=== PATIENT | male | born 1950 | race Caucasian/White ===

== ENCOUNTER → 2017-05-30 16:21 | Outpatient (POV) | payer MEDICARE, OTHER, SELFPAY | PROVIDERS: Family Provider Family Medicine; PCP Family Medicine | DX: Z00.00 Encounter for general adult medical examination without abnormal findings (principal) ==

== ENCOUNTER → 2019-07-11 08:03 | Outpatient (CLI) | payer MEDICARE, OTHER, SELFPAY | PROVIDERS: PCP Family Medicine; Visit Provider Family Medicine | DX: R00.2 Palpitations (principal) | CPT/HCPCS: 93225; 93226 ==

== ENCOUNTER → 2019-07-16 10:45 | Outpatient (CLI) | payer MEDICARE, OTHER, SELFPAY ==
--- NOTE | 2019-07-16 | CA_ITS ---
APPROVED REPORT Exam: Pharmacologic Technologist: Lana Beckman Ht: 5 ft 10 in Wt: 195 lbs BSA: 2.07 m2 HR: 75 bpm BP: 129/69 mmHg Indications: Chest pain Medical History Medications: Levothyroxine,,,,, Pravastatin,,,,, Vitamin C,,,,, Losartan,,,,, Escitalopram,,,,, TAMSULOSIN,,,,, DulOXETINE,,,,, BisOPROLOL,,,,, Zinc,,,,, Stress Test Details Test: LEXISCAN HR Resting HR: 79 bpm Max Heart Rate (APMHR): 151 bpm Max HR Achieved: 91 bpm Target HR (85% APMHR): 128 bpm % of APMHR: 60 Recovery HR: 80 bpm BP Resting BP: 129.0/69.0 mmHg Max BP: 129.0/69.0 mmHg Recovery BP: 100.0/59.0 mmHg ECG Clinical Exercise duration: 04:02 min Highest Stage Achieved: Exercise capacity: 1.0 METs Stress ECG Conclusion Resting ECG: Sinus rhythm Lexiscan portion completed. Patient denied any complaints during infusion. Symptoms: No chest pain. No shortness of breath during peak infusion. Arrhythmias/Ectopy: Occasional PAC ST-T Changes: Less than 1.[address] depression. Conclusion: Images to follow. Electronically signed by : Jamie Mancilla, 07/17/2019 09:56:13
--- NOTE | 2019-07-16 10:47 | CA_ITS ---
APPROVED REPORT EXAM: Comprehensive 2D, Doppler, and color-flow Echocardiogram Traffic Recorder: Rhonda Goodrich RVT Ht: 5 ft 11 in Wt: 195lbs BSA: 2.09 BP: 133/84 mmHg Indications: CP,EX SMOKER,CAO, ABN HOLTER,DIZZINESS,MATHEUS 2D Dimensions LVOT 2.14 cm (M/F) 1.5-2.5 M-Mode Dimensions RVDd 2.82 cm (0.9-2.6) LVDd 4.92 cm (3.5-5.7) LVDs 3.17 cm (3.5-5.7) IVSd 0.71 cm (0.6-1.1) PWd 0.68 cm (0.6-1.1) EF (Teich) 64.90% FS 35.60% EDV (Teich) 113.90 mL ESV (Teich) 40.00 mL LV Diastology E/A Ratio 0.70 Mitral Valve MV A Velocity 71.00 (40-130 cm/s) Left Ventricle Left atrium is mildly enlarged, left ventricle is normal size, left ventricle wall thickness is upper limit of the normal, there is preserved left ventricular systolic function, visually estimated ejection fraction 55% with no regional wall motion abnormality. Grade 1 diastolic dysfunction seen without tissue Doppler evidence of raise left atrial pressure. Right Ventricle Right atrium and right ventricle are mildly enlarged with normal contractility. Aortic Valve Aortic valve is minimally thickened and fibrosed. There is no aortic stenosis aortic insufficiency. Mitral Valve Mitral valve is grossly normal, there is mild mitral regurgitation. Tricuspid Valve Tricuspid valve is grossly normal, there is mild tricuspid regurgitation, tricuspid regurgitation jet velocity is inadequate for calculation of the right ventricular systolic pressure. Pulmonic Valve Pulmonic valve is poorly visualized. Great Vessels Aortic root is normal size. Pericardium No significant pericardial effusion noted. Conclusion 1. Mild biatrial enlargement, normal left ventricular size, mild concentric left ventricular hypertrophy, visually estimated ejection fraction 55% with no regional wall motion abnormality, grade 1 diastolic dysfunction seen without tissue Doppler evidence of raise left atrial pressure. 2. Mildly enlarged right ventricle with normal contractility. 3. Mild mitral and tricuspid regurgitation. 4. No significant pericardial effusion noted. Electronically signed by : Jamie Mancilla, 07/17/2019 12:22:45
--- NOTE | 2019-07-16 11:26 | NM_ITS ---
APPROVED REPORT Exam: Nuclear Stress Test Indication: HTN, HYPERLIPIDEMIA, TOB USE, C.P., SOB, SYNCOPE, FATIGUE Patient Location: Outpatient Stress Tech: Lana Beckman NV Tech:Lydia Warren ARRT RT (R)(N)(M) Ht: 5 ft 10 in Wt: 195 lbs HR: 75 bpm BP: 129/69 mmHg BSA: 2.07 m2 BMI: 27.9 History: HTN, HYPERLIPIDEMIA, TOB USE, C.P., SOB, SYNCOPE, FATIGUE Procedure: Patient received a 0.4 mg of intravenous Lexiscan, resting heart rate 75 bpm, resting blood pressure 129/69 mmHg, with Lexiscan maximum heart rate achived was 81 bpm which is Less than 85 % of the maximum predicted heart rate and blood pressure was 100/58 mmHg. With Lexiscan, patient denied any complaint of chest pain. Electrocardiogram Resting electrocardiogram showed sinus rhythm, with Lexiscan there is less than 1.[address] segment depression noted from the baseline EKG. The EKG portion of the Lexiscan Myoview is nondiagnostic. Cardiac Stress and Resting SPECT Images: Cardiac Stress and Resting SPECT images were obtained using technetium 99m Myoview 31.9 mCi stress and 10.67 mCi at rest. Gated SPECT with analysis of segmental wall motion and calculation of the ejection fraction also done. Cardiac stress and resting SPECT images show decrease tracer activity in the inferior lateral wall which improves on the resting images suggestive of reversible ischemia, computer derived ejection fraction is 60% with no regional wall motion abnormality, right ventricle is normal size and contractility. Conclusion: 1. The EKG portion of the Lexiscan Myoview is nondiagnostic. 2. Scintigraphic evidence of mild reversible ischemia involving the inferolateral wall, computer derived ejection fraction is 60% with no regional wall motion abnormality, right ventricle is normal size and contractility. 3. Abnormal Lexiscan Myoview study. Electronically signed by : Jamie Mancilla, 07/17/2019 09:59:13
== END ==
PROVIDERS: PCP Family Medicine; Visit Provider Internal Medicine
DX: R00.0 Tachycardia, unspecified (principal); R06.00 Dyspnea, unspecified; R07.9 Chest pain, unspecified
CPT/HCPCS: 78452; 93017; 93306; A9502; J2785

== ENCOUNTER 2019-07-25 09:03 | Day surgery (SDC) | payer MEDICARE, OTHER, SELFPAY ==
[2019-07-25] VITALS (11 sets, daily range): BP systolic 89–151; BP diastolic 52–102; PULSE 67–72; RESP 15–18; TEMP 36.8; O2SAT 90–99; BMI 27.1
--- NOTE | 2019-07-25 | IR_ITS ---
APPROVED REPORT Patient Location: Outpatient PROCEDURES Left heart catheterization Left ventriculogram Selective coronary angiogram INDICATION Abnormal Myoview Informed consent was obtained prior to the procedure. COMPLICATIONS NONE Estimated Blood Loss: LESS THAN 10 ML TECHNIQUE One percent lidocaine used to anesthetize the right anterior aspect of the wrist. The right radial artery was accessed via the Seldinger technique. A 6 Georgian sheath was placed in the right radial artery. 2.5 mg of verapamil, 800 mcg of nitroglycerin, 1mg Lidocaine and 5000 U Heparin were given through the arterial sheath. The trap catheter was also used to perform left heart catheterization, left ventriculogram and selective coronary angiogram. At the end of the procedure the sheath was removed good hemostasis was achieved using Traclet band, patient was transferred to the postop holding area in stable condition. ANGIOGRAPHIC RESULTS The left main artery Normal The left anterior descending artery Is proximally normal and has mid vessel smooth 30 to 40% eccentric stenosis with remaining vessel normal The circumflex artery Nondominant normal The right coronary artery Large dominant normal The ANDRADE ventriculogram reveals Normal 65% The left ventricular end-diastolic pressure 10 mmHg IMPRESSION Mild to moderate mid LAD stenosis Normal ejection fraction Normal left ventricular end-diastolic pressure PLAN 1. Medical management 2. LDL less than 55 3. Standard therapy for ischemic heart disease 4. Risk factor modification 5. Avoidance of tobacco products Electronically signed by : Talha Linares, 07/25/2019 12:09:45
[2019-07-25 09:44] LABS: Basophils # 0.2 K/mm3 (0-0.2); Basophils % 1.5 % (0.1-2.0); Chloride 105 mmol/L (98-107); Eosinophils # 0.3 K/mm3 (0.0-0.4); Eosinophils % 2.8 % (0.1-12.0); Hematocrit 44.9 % (42.0-52.0); Hemoglobin 15.8 g/dL (14.1-18.0); Lymphocytes % 29.5 % (10-50); Mean Corpuscular HGB Conc 35.2 g/dL (31.8-35.4); Mean Corpuscular Hemoglobin 32.3 pg (27.0-31.2); Mean Corpuscular Volume 91.8 fl (80-94); Monocytes # 0.6 K/mm3 (0.1-1.0); Monocytes % 6.1 % (1.7-9.3); Neutrophils # 6.1 K/mm3 (1.8-7.8); Neutrophils % 60.2 % (37.0-80.0); Platelet Count 289 K/mm3 (142-424); Red Blood Count 4.89 M/mm3 (4.60-6.20); Red Cell Distribution Width 13.5 % (11.5-17.5); White Blood Count 10.1 K/mm3 (4.8-10.8)
[2019-07-25 09:45] LABS: Potassium 4.2 mmoL/L (3.5-5.1); Sodium 140 mmol/L (136-145)
[2019-07-25 09:47] LABS: Blood Urea Nitrogen 19 mg/dl (9-20); Creatinine Clearance Estimated 87 mL/min (50-200); Estimated Glomerular Filt Rate 74 ml/min (>60); GFR (African American) 90 ML/MIN (>60)
[2019-07-25 09:48] LABS: Anion Gap 11.2 mEq/L (5-15); Carbon Dioxide 28 mmol/L (22.0-30.0)
[2019-07-25 09:54] LABS: Calcium 9.9 mg/dl (8.4-10.2); Glucose 112 mg/dl (74-100)
== END 2019-07-25 14:50 | disposition home or self-care (01) ==
PROVIDERS: PCP Family Medicine; Visit Provider Internal Medicine
DX: R94.39 Abnormal result of other cardiovascular function study (principal); R06.00 Dyspnea, unspecified; E03.9 Hypothyroidism, unspecified; I10 Essential (primary) hypertension; E78.5 Hyperlipidemia, unspecified; Z87.891 Personal history of nicotine dependence; Z79.899 Other long term (current) drug therapy; Z88.0 Allergy status to penicillin; I25.10 Atherosclerotic heart disease of native coronary artery without angina pectoris
CPT/HCPCS: 80048; 85025; 93458; 99152; C1725; C1769; J1644; Q9967

== ENCOUNTER → 2020-09-25 11:13 | Outpatient (CLI) | payer MEDICARE, OTHER, SELFPAY ==
--- NOTE | 2020-09-25 11:23 | XR_ITS ---
PROCEDURE INFORMATION: Exam: XR Left Foot Exam date and time: 09/25/2020 11:23 AM Age: 70 years old Clinical indication: Patient HX: Left foot pain along medial side of foot TECHNIQUE: Imaging protocol: XR Left foot. Views: 3 or more views. COMPARISON: No relevant prior studies available. FINDINGS: Bones/joints: Mild degenerative changes at the 1st metatarsal-phalangeal joint. No acute fracture or dislocation. Soft tissues: Normal. IMPRESSION: No acute fracture or dislocation.
== END ==
PROVIDERS: PCP Family Medicine; Referring Provider Family Medicine; Visit Provider Family Medicine
DX: M79.672 Pain in left foot (principal)
CPT/HCPCS: 73630

== ENCOUNTER → 2020-10-25 12:54 | Outpatient (CLI) | payer MEDICARE, OTHER, SELFPAY ==
[2020-10-25 13:07] LABS: Adenovirus,PCR Not Detected (NotDetected); Bordetella Pertussis Not Detected (NotDetected); Chlamydophila Pneumoniae, PCR Not Detected (NotDetected); Coronavirus 19, PCR Not Detected (NotDetected); Coronavirus 229E Not Detected (NotDetected); Coronavirus NL63 Not Detected (NotDetected); Coronavirus OC43 Not Detected (NotDetected); Coronovirus HKU1,PCR Not Detected (NotDetected); Human Metapneumovirus Not Detected (NotDetected); Influenza A, PCR Not Detected (NotDetected); Influenza AH1, 2009 Not Detected (NotDetected); Influenza AH1, PCR Not Detected (NotDetected); Influenza AH3,PCR Not Detected (NotDetected); Influenza B, PCR Not Detected (NotDetected); Mycoplasma Pneumoniae, PCR Not Detected (NotDetected); Parainfluenza 1, PCR Not Detected (NotDetected); Parainfluenza 2, PCR Not Detected (NotDetected); Parainfluenza 4, PCR Not Detected (NotDetected); Respiratory Syncytial Virus Not Detected (NotDetected); Rhinovirus/Enterovirus Not Detected (NotDetected)
[2020-10-25 15:51] LABS: Parainfluenza 3, PCR Detected (NotDetected)
== END ==
PROVIDERS: Visit Provider Family Medicine
DX: Z20.822 Contact with and (suspected) exposure to COVID-19 (principal); J40 Bronchitis, not specified as acute or chronic; J11.1 Influenza due to unidentified influenza virus with other respiratory manifestations
CPT/HCPCS: 87581; 87633; 87798

== ENCOUNTER → 2021-04-15 07:15 | Outpatient (CLI) | payer MEDICARE, OTHER, SELFPAY ==
--- NOTE | 2021-04-15 07:35 | MR_ITS ---
FINAL REPORT CLINICAL HISTORY: LEFT KNEE PAIN. MEDIAL AND LATERAL KNEE PAIN WITH PAIN INFERIOR TO PATELLA. SLIPPED ON ICE X1WK AGO. CLICK IN KNEE WHEN FLEXING AND EXTENDING. NO PRIOR. FINDINGS: Multiplanar MR imaging of the left knee was performed without contrast. There is medial meniscal degeneration with a flap tear of the posterior horn of the medial meniscus. The flap is displaced into the meniscotibial recess. There is lateral meniscal degeneration with a tear of the posterior horn of the lateral meniscus. The anterior and posterior cruciate ligaments are intact. The medial collateral ligament and lateral ligamentous complex are intact. The patellar and quadriceps tendons are intact. There is hemorrhage or edema anterior to the patellar tendon. There is no evidence of fracture. There is mild medial compartment degenerative change with moderate to severe chondromalacia. There is an 8 mm osteochondral lesion of the medial femoral condyle. 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 No significant joint effusion is seen. The musculature is intact. IMPRESSION: 1. Tear of the posterior horn of the medial meniscus with the flap displaced into the meniscotibial recess. 2. Tear of the posterior horn of the lateral meniscus. 3. Hemorrhage or edema anterior to the patellar tendon. 4. Severe degenerative changes as above. Reviewed, Interpreted and Dictated by Hemant Caceres III, MD Transcribed by KACIE Bonds Authenticated by Hemant Caceres III, MD on 04/15/2021 09:59:02 AM [facility]
== END ==
PROVIDERS: PCP Family Medicine; Visit Provider Family Medicine
DX: M25.562 Pain in left knee (principal)
CPT/HCPCS: 73721

== ENCOUNTER 2024-03-20 16:37 | Outpatient (CLI) | payer MEDICARE, OTHER, SELFPAY | END 2024-03-20 23:59 | disposition home or self-care (01) | LOC: RT 16:41 | PROVIDERS: PCP Family Medicine; Visit Provider Family Medicine | DX: R00.2 Palpitations (principal) | CPT/HCPCS: 93225; 93227 ==

== ENCOUNTER 2024-03-26 11:44 | Outpatient (CLI) | payer MEDICARE, OTHER, SELFPAY ==
--- NOTE | 2024-03-26 11:48 | XR_ITS ---
FINAL REPORT CLINICAL HISTORY: B/L RALES FINDINGS: CHEST 2 VIEWS PA AND LATERAL The heart is normal in size. The mediastinum is unremarkable. The lungs are clear. There is no pneumothorax. IMPRESSION: No acute process. Reviewed, Interpreted and Dictated by Matteo Rankin MD Transcribed by Mago Tran Authenticated and [facility]
== END 2024-03-26 23:59 | disposition home or self-care (01) ==
LOC: RAD 11:46
PROVIDERS: PCP Family Medicine; Visit Provider Family Medicine
DX: R09.89 Other specified symptoms and signs involving the circulatory and respiratory systems (principal)
CPT/HCPCS: 71046

== ENCOUNTER 2024-08-13 06:35 | Day surgery (SDC) | payer MEDICARE, OTHER, SELFPAY ==
[2024-08-13 07:01] VITALS: BMI 29.1
[2024-08-13] MEDS: LACTATED RINGERS 1000ML 1,000 ML 50 ML IV ×2 (07:03→07:27)
[2024-08-13 07:21] VITALS: BP 134/71; PULSE 61; RESP 18; TEMP 36.1; O2SAT 96
--- NOTE | 2024-08-13 07:49 | EXP.HP ---
History of Present Illness *Admission Date: 08/13/24 *History of present illness: Mr. Colindres is a 74-year-old gentleman who is here for diagnostic colonoscopy secondary to a change in bowel habits with diarrhea that began 10 weeks ago. This has improved with a probiotic. He has lost 20 pounds unintentionally. The examination is deemed medically necessary for diagnostic colonoscopy. The patient has been seen, interviewed and examined prior to the procedure by both myself and the anesthesia provider. [facility] Disclaimer: The information contained in this section may have been updated after the patient was seen, as this information can be updated by other users. Medical History (Updated 08/13/24 @ 07:56 by Nikko Tran II, MD) HLD (hyperlipidemia) HTN (hypertension) CAD (coronary artery disease) Ex-smoker Dizziness MATHEUS (obstructive sleep apnea) Sinus tachycardia Dyspnea Chest pain Surgical History (Updated 08/13/24 @ 07:20 by Ange Ramirez RN) Hx of appendectomy Hx of colonoscopy Social History (Updated 08/13/24 @ 07:20 by Ange Ramirez RN) Smoking Status: Former smoker alcohol intake: current alcohol intake frequency: 0-2 drinks per day current occupational status: employed Travel in the last 8 weeks?: None household members: spouse Have you lived/traveled outside [place] in past 30 days?: No Contact w/someone who lives/traveled outside US past 30 days?: No Exposure to someone with infectious disease in past 14 days?: No Do you have a fever (greater than 100.4 F or 38 C)?: No Have you tested positive for COVID-19?: No Exposed to someone with COVID-19 in past 14 days?: No Do you have a sore throat?: No Do you have a cough?: No Do you have any weakness?: No Are you experiencing any nausea/vomitting?: No Do you have any diarrhea?: No Are you experiencing any unusual bleeding?: No Do you have any muscle aches/pain?: No Do you have any abdominal pain?: No Are you experiencing loss of taste or smell?: No Other Medical History Have you received the Flu Vaccine for this season: Yes Have you received the Pneumonia Vaccine: Yes Review of Systems Review of Systems Review of systems (narrative): Negative *Cardiovascular Comments: Negative *Gastrointestinal Comments: Negative *Genitourinary Comments: Negative *Musculoskeletal Comments: Negative *Neurologic Comments: Negative Meds Home Medications and Allergies Home Medications ?Medication ?Instructions ?Recorded ?Confirmed ?Type ascorbic acid (vitamin C) 1,000 mg 1 g PO DAILY 07/15/19 07/08/20 History tablet levothyroxine 75 mcg tablet 75 mcg PO DAILY 07/15/19 08/13/24 History tamsulosin 0.4 mg capsule 0.4 mg PO DAILY 07/15/19 08/13/24 History sertraline 100 mg tablet 100 mg PO DAILY 07/08/20 08/13/24 History bisoprolol fumarate 5 mg tablet 5 mg PO DAILY #30 tabs 01/31/21 08/13/24 Rx rosuvastatin 20 mg tablet 20 mg PO DAILY #30 tabs 01/31/21 08/13/24 Rx losartan 50 mg tablet 50 mg PO DAILY #30 tabs 11/08/21 08/13/24 Rx New Prescriptions to Start Prescriptions: Allergies Allergy/AdvReac Type Severity Reaction Status Date / Time penicillin G (PENICILLIN G) Allergy Unknown Other Verified 08/13/24 07:06 Exam Data for Last 24 hours Vital signs and Labs for Last 24 Hours: Temp Pulse Resp BP Pulse Ox O2 Del Method 97.0 F L 61 18 134/71 96 Room Air 08/13/24 07:21 08/13/24 07:21 08/13/24 07:21 08/13/24 07:21 08/13/24 07:21 08/13/24 07:21 I & O for Last 24 hours: Intake & Output 08/10/24 08/11/24 08/12/24 08/13/24 23:59 23:59 23:59 23:59 Weight 209 lb *Routine HEENT Exam Head: Present normocephalic Eye: Present EOMI and PERRL ENT: Present mucous membranes moist *Routine Neck Exam Neck: Present supple *Routine Respiratory Exam Respiratory: Present CTA bilaterally *Routine Cardiovascular Exam Cardiovascular: Present RRR *Routine Abdominal Exam Abdominal: Present soft and normoactive bowel sounds; Absent tenderness *Routine Rectal Exam Rectal:: deferred *Routine Genitalia Exam Genitalia:: deferred *Routine Extremities Exam Extremities: Absent cyanosis, clubbing or edema *Routine Skin Exam Skin: Present warm; Absent rash *Routine Neurological Exam Neurological: Present alert and oriented X3 Assessment and Plan *Assessment and plan (1) Change in bowel habits: Status: Acute Category: Medical Code(s): R19.4 - Change in bowel habit (2) Diarrhea: Status: Acute Category: Medical Code(s): R19.7 - Diarrhea, unspecified (3) Abnormal weight loss: Status: Acute Category: Medical Code(s): R63.4 - Abnormal weight loss Plan A/P: 1. Change in bowel habits is the preprocedural diagnosis. About 10 weeks ago the patient developed loose stools and diarrhea which has persisted but improved with a probiotic. His last colonoscopy was nearly 20 years ago. The patient will be anesthetized/sedated using MAC sedation. The patient has been seen and examined. Cardiac and lung assessment prior to the examination is stable. Proceed with planned diagnostic colonoscopy.
--- NOTE | 2024-08-13 07:56 | P.PCN_ITS ---
[facility] Procedure Note Date: 08/13/24 Time: 08:13 Procedure Note:: Colonoscopy Procedure Report: Colonoscopy with cold biopsies Endoscopist: Nikko Tran II, MD Referring physician: Reji Marquez MD Date of Procedure: August 13, 2024 Equipment: Olympus 190 variable stiffness pediatric colonoscope Sedation: MAC sedation Indication: Mr. Colindres is a 74-year-old gentleman who is here for diagnostic colonoscopy. The patient does report the onset of diarrhea and loose stools 10 weeks ago. This persisted and he did see Dr. Marquez and began a probiotic. The probiotic has helped but he still has to loose stools daily. He has lost about 20 pounds. He does get some lower abdominal discomfort and bloating that precedes a bowel movement. He has had some long-term gassiness. He reports no rectal bleeding or mucus with his stools. He does state that his paternal aunt had colon cancer and his father had diverticulitis. His last colonoscopy was about 20 years ago. Procedure: Prior to the procedure, a history and physical exam was performed, and patient's medications and allergies were reviewed. The risks, benefits and alternatives of the sedation and procedure were discussed with the patient. All questions were answered and informed consent was obtained. The patient was brought to the procedure room. Patient identification and proposed procedure were verified by the physician and the nurse. The patient was placed in a left lateral decubitus position and the scope was passed under direct vision. Throughout the procedure, the patient's blood pressure, pulse, and oxygen saturations were monitored continuously. The colonoscopy was accomplished without difficulty. The patient tolerated the procedure well. Findings: On digital rectal examination there was normal rectal tone. There were no external hemorrhoids. The prostate was 2+, smooth, soft, symmetric without nodules. The colonoscope was introduced through the anal canal to the rectum and advanced to the cecum. The ileocecal valve and appendiceal orifice were identified. The scope was advanced a short distance into the ileum which appeared grossly normal. The scope was then withdrawn into the colon. Random cold biopsies were taken from the right colon x 4 to rule out microscopic colitis. The cecum, ascending and transverse colon and mucosa were grossly normal. There were scattered diverticuli throughout the descending and sigmoid colon (LEFT colon). The rectum itself was normal. Upon retroflexion within the rectum there were grade 1-2 internal hemorrhoids. The preparation was excellent throughout with [place] Preparation Score of 9. The cecal time was 10 minutes. Impression: 1. Extensive left-sided diverticulosis 2. Grade 1-2 internal hemorrhoids Plan: I will follow-up the biopsies to rule out microscopic colitis. I would recommend bulking psyllium fiber on a daily maintenance basis. The patient should not require any further preventive/surveillance colonoscopy. 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 If the diarrhea persists, we may consider additional measures (i.e. Colestid or Viberzi).
[2024-08-13 08:20] VITALS: BP 132/75; PULSE 68; RESP 16; TEMP 36.2; O2SAT 93
[2024-08-13 08:30] VITALS: BP 118/72; PULSE 63; RESP 16; O2SAT 92
[2024-08-13 08:40] VITALS: BP 121/80; PULSE 63; RESP 18; O2SAT 95
[2024-08-13 08:50] VITALS: BP 126/79; PULSE 64; RESP 18; O2SAT 95
== END 2024-08-13 09:00 | disposition home or self-care (01) ==
PROVIDERS: PCP Family Medicine; Visit Provider Internal Medicine Gastroenterology
PROC: 0DJD8ZZ Inspection of Lower Intestinal Tract, Via Natural or Artificial Opening Endoscopic (ICD-10-PCS; CPT 45378; principal; 2024-08-13 08:00)
DX: K57.30 Diverticulosis of large intestine without perforation or abscess without bleeding (principal); K64.1 Second degree hemorrhoids; R19.4 Change in bowel habit; R19.7 Diarrhea, unspecified; R63.4 Abnormal weight loss; E78.5 Hyperlipidemia, unspecified; I10 Essential (primary) hypertension; I25.10 Atherosclerotic heart disease of native coronary artery without angina pectoris; G47.33 Obstructive sleep apnea (adult) (pediatric); Z90.49 Acquired absence of other specified parts of digestive tract; Z88.4 Allergy status to anesthetic agent; Z88.0 Allergy status to penicillin; Z79.890 Hormone replacement therapy; Z87.891 Personal history of nicotine dependence; Z79.899 Other long term (current) drug therapy
CPT/HCPCS: 45380; 88305; J1200; J2003; J2250; J2704; J7120